=== PATIENT | male | born 1990 | race Hispanic/Latino ===

== ENCOUNTER 2017-06-12 22:56 | Observation (INO) | payer OTHER ==
[2017-06-12 23:10] VITALS: BMI 21.7
--- NOTE | 2017-06-12 23:10 | ED PDOC ---
Arrival/HPI - General Historian: Patient, EMS - History of Present Illness Symptom Onset: Gradual Symptom Course: Unchanged Activities at Onset: Light Context: Street - General Time Seen by Provider: 06/12/17 23:02 - History of Present Illness Narrative History of Present Illness (Text): 06/12/17 23:09 Jerome Jasso is a 26 year old male who presents to the Emergency department brought in by EMS for public intoxication tonight. Patient admits to drinking and denies any substance abuse. Patient denies any suicidal ideation, homicidal ideation, nausea, vomiting, headache, dizziness, or any other complaints. Patient states he wants to leave and attempting to leave Emergency room. (Harvey Gold) Past Medical History - Provider Review Nursing Documentation Reviewed: Yes - Infectious Disease Hx of Infectious Diseases: None - Tetanus Immunization Tetanus Immunization: Unknown - Past Medical History Past Medical History: No Previous - Psychiatric Hx Depression: No Hx Emotional Abuse: No Hx Physical Abuse: No Hx Substance Use: No - Past Surgical History Past Surgical History: No Previous - Suicidal Assessment Feels Threatened In Home Enviroment: No Family/Social History - Physician Review Nursing Documentation Reviewed: Yes Family/Social History: Unknown Family HX Smoking Status: Heavy Smoker > 10 Cigarettes Daily Hx Alcohol Use: Yes Hx Substance Use: No Hx Substance Use Treatment: No Allergies/Home Meds Allergies/Adverse Reactions: Allergies apple Allergy (Verified 04/07/16 13:40) ITCHING coronado Allergy (Verified 04/07/16 13:40) ANGIOEDEMA Penicillins Allergy (Verified 04/07/16 13:40) URTICARIA strawberry Allergy (Verified 04/07/16 13:40) ANGIOEDEMA Home Medications: Home Meds Medication Instructions Recorded Confirmed No Known Home Med 06/13/17 06/13/17 Review of Systems - Physician Review All systems were reviewed & negative as marked: Yes - Review of Systems Constitutional: Normal. absent: Fevers Eyes: Normal ENT: Normal Respiratory: Normal. absent: SOB, Cough Cardiovascular: Normal. absent: Chest Pain Gastrointestinal: Normal. absent: Abdominal Pain, Diarrhea, Nausea, Vomiting Genitourinary Male: Normal. absent: Dysuria, Frequency, Hematuria, Urinary Output Changes Musculoskeletal: Normal. absent: Back Pain, Neck Pain Skin: Normal. absent: Rash Neurological: Normal. absent: Headache, Dizziness Endocrine: Normal Hemo/Lymphatic: Normal Psychiatric: Other (+alcohol intoxication) Physical Exam Vital Signs Reviewed: Yes Temperature: Afebrile Blood Pressure: Normal Pulse: Regular Respiratory Rate: Normal Appearance: Positive for: Well-Appearing, Comfortable Pain Distress: None Mental Status: Positive for: Alert and Oriented X 3 - Systems Exam Head: Present: Atraumatic, Normocephalic Pupils: Present: PERRL Extroacular Muscles: Present: EOMI Conjunctiva: Present: Normal Mouth: Present: Moist Mucous Membranes Neck: Present: Normal Range of Motion Respiratory/Chest: Present: Clear to Auscultation, Good Air Exchange. No: Respiratory Distress, Accessory Muscle Use Cardiovascular: Present: Regular Rate and Rhythm, Normal S1, S2. No: Murmurs Abdomen: Present: Normal Bowel Sounds. No: Tenderness, Distention, Peritoneal Signs Back: Present: Normal Inspection Upper Extremity: Present: Normal Inspection. No: Cyanosis, Edema Lower Extremity: Present: Normal Inspection. No: Edema Neurological: Present: GCS=15, CN II-XII Intact, Speech Normal Skin: Present: Warm, Dry, Normal Color. No: Rashes Psychiatric: Present: Alert, Oriented x 3, Normal Insight, Normal Concentration Vital Signs Temp Pulse Resp BP Pulse Ox 06/13/17 08:46 98 F 74 20 122/65 99 06/13/17 07:24 66 18 95/47 L 99 06/13/17 06:00 97.6 F 82 16 122/47 L 97 06/13/17 01:02 78 16 100/60 96 06/12/17 23:20 97.6 F 86 16 114/76 99 Medical Decision Making ED Course and Treatment: 06/12/17 23:09 Impression: 26 year old male brought in by EMS for alcohol intoxication. Differential Diagnosis included but are not limited to: alcohol intoxication Plan: -- Alcohol level -- Reassess and disposition Prior Visits: Notes and results from previous visits were reviewed. On 04/07/2016, pt was seen in the Emergency department for productive cough. Pt was d/c home. (Harvey Gold) - Medication Orders Current Medication Orders: Discontinued Medications Haloperidol Lactate (Haldol) 5 mg IM STAT STA PRN Reason: Protocol Stop: 06/12/17 23:46 Last Admin: 06/12/17 23:56 Dose: 5 mg Lorazepam (Ativan) 2 mg IM ONCE ONE Stop: 06/12/17 23:46 Last Admin: 06/12/17 23:57 Dose: 2 mg ED OBSERVATION Date of observation admission: 06/12/17 Time of observation admission: 23:10 - Observation admission statement Patient is being placed in observation because:: alcohol intoxication (Harvey Gold) - Goals of Observation Goals of observation are:: sobriety, observe for signs of withdrawal (Harvey Gold) - Progress Note Progress Note: 06/12/17 23:10 Pt attempting to walk out of Emergency room. Pt restrained for his safety and the safety of staff. 06/13/17 01:00 Pt sleeping, stable vital signs. 06/13/17 03:00 Pt sleeping, in no acute distress. 06/13/17 05:00 Pt sleeping, in no acute distress. 06/13/17 06:55 Pt. remains drowsy combination of alcohol and sedation.Endorsed to , pending sobriety/reassessment/final disposition (Harvey Gold) - Scribe Statement The provider has reviewed the documentation as recorded by the Scribe - Scribe Statement Malou Mattson Provider Scribe Attestation: All medical record entries made by the Scribe were at my direction and personally dictated by me. I have reviewed the chart and agree that the record accurately reflects my personal performance of the history, physical exam, medical decision making, and the department course for this patient. I have also personally directed, reviewed, and agree with the discharge instructions and disposition. (Harvey Gold) Disposition/Present on Arrival - Present on Arrival Any Indicators Present on Arrival: No History of DVT/PE: No History of Uncontrolled Diabetes: No Urinary Catheter: No History Surgical Site Infection Following: None - Disposition Have Diagnosis and Disposition been Completed?: Yes Disposition Time: 07:00 - Disposition Diagnosis: Alcohol intoxication Disposition: HOME/ ROUTINE Condition: IMPROVED
--- NOTE | 2017-06-13 07:13 | ED PDOC ---
Physical Exam Vital Signs Temp Pulse Resp BP Pulse Ox 06/13/17 07:24 66 18 95/47 L 99 06/13/17 06:00 97.6 F 82 16 122/47 L 97 06/13/17 01:02 78 16 100/60 96 06/12/17 23:20 97.6 F 86 16 114/76 99 Medical Decision Making ED Course and Treatment: 06/13/17 07:12 Case endorsed to me by Dr. Gold. Pending patient's sobriety. 06/13/17 08:45 On re-evaluation patient is awake and oriented x3. Patient has no hand tremors and no ataxia. Patient denies Suicidal Ideation and Homicidal Ideation. Patient states he had a little too much to drink and will consider a detox program. - Medication Orders Current Medication Orders: Discontinued Medications Haloperidol Lactate (Haldol) 5 mg IM STAT STA PRN Reason: Protocol Stop: 06/12/17 23:46 Last Admin: 06/12/17 23:56 Dose: 5 mg Lorazepam (Ativan) 2 mg IM ONCE ONE Stop: 06/12/17 23:46 Last Admin: 06/12/17 23:57 Dose: 2 mg Disposition/Present on Arrival - Present on Arrival Any Indicators Present on Arrival: No History of DVT/PE: No History of Uncontrolled Diabetes: No Urinary Catheter: No History of Decub. Ulcer: No History Surgical Site Infection Following: None - Disposition Have Diagnosis and Disposition been Completed?: Yes Diagnosis: Alcohol intoxication Disposition: HOME/ ROUTINE Disposition Time: 08:24 Patient Plan: Discharge Condition: IMPROVED
[2017-06-13 07:25] VITALS: O2SAT 99
[2017-06-13 08:46] VITALS: BP 122/65; PULSE 74; RESP 20; TEMP 98
== END 2017-06-13 08:24 | disposition home or self-care (01) ==
LOC: ED 22:56 → EROBSV 23:10
PROVIDERS: ADMIT Emergency Medicine; ATTEND Emergency Medicine
DX: F10.129 Alcohol abuse with intoxication, unspecified (principal); Y90.8 Blood alcohol level of 240 mg/100 ml or more
CPT/HCPCS: 80320; 96372; 99285; G0378; J1630; J2060

== ENCOUNTER 2018-09-29 20:41 | Emergency (ER) | payer OTHER ==
[2018-09-29 21:26] VITALS: BMI 21.2
--- NOTE | 2018-09-29 21:40 | ED PDOC ---
Arrival/HPI - General Historian: Patient - History of Present Illness Narrative History of Present Illness (Text): 09/29/18 21:37 28 y/o M with no significant PMHx presents to ED with complaints of constant, 8/10 L ankle and L knee pain since 4 days ago. Pt reports he was playing basketball over the weekend when he landed on his L ankle and inverted it and felt his knee buckle as he fell towards the R side. He has tried ice and epsom salt soak without relief. He reports he did not feel it buckle. He has been able to bear weight on the leg, but has missed work for the last 3 days. He denies fevers, chills, headache, dizziness, chest pain, palpitations, shortness of breath, nausea, vomiting, diarrhea. Time/Duration: Prior to Arrival Symptom Onset: Gradual Symptom Course: Unchanged Quality: Throbbing Severity Level: 8 Context: Other (playing basketball) <Tory Scruggs - Last Filed: 09/29/18 23:15> <Harvey Gold - Last Filed: 09/30/18 01:05> - General Chief Complaint: Lower Extremity Problem/Injury Past Medical History - Provider Review Nursing Documentation Reviewed: Yes - Infectious Disease Hx of Infectious Diseases: None - Tetanus Immunization Tetanus Immunization: Unknown - Past Medical History Past Medical History: No Previous - Psychiatric Hx Depression: No Hx Emotional Abuse: No Hx Physical Abuse: No Hx Substance Use: No - Past Surgical History Past Surgical History: No Previous - Anesthesia Hx Anesthesia: No - Suicidal Assessment Feels Threatened In Home Enviroment: No <Tory Scruggs - Last Filed: 09/29/18 23:15> Family/Social History - Physician Review Nursing Documentation Reviewed: Yes Family/Social History: Unknown Family HX Smoking Status: Heavy Smoker > 10 Cigarettes Daily Hx Alcohol Use: Yes Hx Substance Use: No Hx Substance Use Treatment: No <Tory Scruggs - Last Filed: 09/29/18 23:15> Allergies/Home Meds <Tory Scruggs - Last Filed: 09/29/18 23:15> <Harvey Gold - Last Filed: 09/30/18 01:05> Allergies/Adverse Reactions: Allergies apple Allergy (Verified 09/29/18 21:26) ITCHING coronado Allergy (Verified 09/29/18 21:26) ANGIOEDEMA Penicillins Allergy (Verified 09/29/18 21:26) URTICARIA strawberry Allergy (Verified 09/29/18 21:26) ANGIOEDEMA Home Medications: Home Meds Medication Instructions Recorded Confirmed No Known Home Med 06/13/17 09/29/18 Review of Systems - Review of Systems Constitutional: Normal Eyes: Normal ENT: Normal Respiratory: Normal Cardiovascular: Normal Gastrointestinal: Normal Genitourinary Male: Normal Musculoskeletal: Joint Swelling (L ankle), Other (L medial knee pain) Skin: Normal Neurological: Normal Endocrine: Normal Hemo/Lymphatic: Normal Psychiatric: Normal <Tory Scruggs - Last Filed: 09/29/18 23:15> Physical Exam Vital Signs Reviewed: Yes Temperature: Afebrile Blood Pressure: Normal Pulse: Regular Respiratory Rate: Normal Appearance: Positive for: Well-Appearing, Non-Toxic, Comfortable Pain Distress: None Mental Status: Positive for: Alert and Oriented X 3 - Systems Exam Head: Present: Atraumatic, Normocephalic Pupils: Present: PERRL Extroacular Muscles: Present: EOMI Conjunctiva: Present: Normal Mouth: Present: Moist Mucous Membranes Neck: Present: Normal Range of Motion Respiratory/Chest: Present: Clear to Auscultation, Good Air Exchange. No: Respiratory Distress, Accessory Muscle Use Cardiovascular: Present: Regular Rate and Rhythm, Normal S1, S2. No: Murmurs Abdomen: No: Tenderness, Distention, Peritoneal Signs Back: Present: Normal Inspection Upper Extremity: Present: Normal Inspection. No: Cyanosis, Edema Lower Extremity: Present: Edema (L ankle edema with lateral ecchymosis. ), Neurovascularly Intact, Other (L medial knee tenderness to palpation. (-) marilyn sign). No: CALF TENDERNESS Neurological: Present: GCS=15, CN II-XII Intact, Speech Normal Skin: Present: Warm, Dry, Normal Color. No: Rashes Psychiatric: Present: Alert, Oriented x 3, Normal Insight, Normal Concentration <Tory Scruggs - Last Filed: 09/29/18 23:15> Medical Decision Making ED Course and Treatment: 09/29/18 21:43 Impression: 28 y/o M with no sig PMHx presents to ED with L ankle/L knee sprain after playing basketball 3 days ago. Differential diagnosis includes but not limited to: L lateral ankle sprain L MCL sprain L metatarsal fracture Plan: L knee & ankle xray Ibuprofen for pain Reassess & dispo Progress Notes: 09/29/18 23:05 Pt revaluated. Pt requesting to sign out AMA and is refusing foot xray. Pt explained all risks, benefits and alternatives to remaining in ER/hospitalization. Pt still requests signing out. AMA paperwork signed by patient, physician and nurse witness. Pt given instructions to return to nearest ER if symptoms return. <Tory Scruggs - Last Filed: 09/29/18 23:15> ED Course and Treatment: Impression: Pt seen and evaluated with medical unit secretary. Aware and agree with HPI, clinical findings, plan, and management. Pt, with no significant past medical history, presented for left ankle and left knee pain after injuring the affected area while playing basketball a few days ago. Plan: -- Motrin -- XR Left Knee -- XR Left Ankle -- Reassess and disposition 09/29/15 23:05 The patient declines to have further medical evaluation and treatment and wishes to leave the Emergency Department. This action is against my medical advice to the patient, and with informed refusal. The patient was told that evaluation and treatment are necessary and a full explanation of the rationale was given. The risks of leaving were explained to the patient and include, but are not limited to, worsening of known or currently unknown conditions, permanent disability and from undiagnosed or untreated conditions The patient has the capacity to make this informed decision and understands the clinical situation and my explanation of the risks of leaving. The patient voluntarily accepts these risks, and a signed AMA form documenting our conversation was obtained. The patient was given the opportunity to ask questions and reconsider. The patient was encouraged to return to the Emergency Department at any time for further care. - RAD Interpretation Radiology Orders: 09/29/18 21:45 ANKLE LEFT 3 VIEWS ROUTINE [RAD] Stat KNEE LEFT 2 VIEWS (AP & LAT) [RAD] Stat - Medication Orders Current Medication Orders: Discontinued Medications Ibuprofen (Motrin Tab) 600 mg PO STAT STA Stop: 09/29/18 21:48 <Harvey Gold - Last Filed: 09/30/18 01:05> - PA / [employer] / Resident Statement SHANIA has reviewed & agrees with the documentation as recorded. MD/DO has examined the patient and agrees with the treatment plan. <Tory Scruggs - Last Filed: 09/29/18 23:15> Disposition/Present on Arrival - Present on Arrival Any Indicators Present on Arrival: No History of DVT/PE: No History of Uncontrolled Diabetes: No Urinary Catheter: No History of Decub. Ulcer: No History Surgical Site Infection Following: None - Disposition Have Diagnosis and Disposition been Completed?: Yes Disposition Time: 23:15 <Tory Scruggs - Last Filed: 09/29/18 23:15> <Harvey oGld - Last Filed: 09/30/18 01:05> - Disposition Diagnosis: Left ankle sprain, Left knee sprain Disposition: AGAINST MEDICAL ADVICE Patient Problems: Current Active Problems Problem Status Onset Left ankle sprain Acute Left knee sprain Acute Condition: GOOD Discharge Instructions (ExitCare): Ankle Sprain (DC), Knee Sprain (DC) Forms: [facility] (Bulgarian), WORK NOTE
[2018-09-30 04:23] VITALS: RESP 16; TEMP 98.1; O2SAT 99
[2018-09-30 04:25] VITALS: BP 125/72; PULSE 72
== END 2018-09-29 23:10 | disposition left against medical advice (07) ==
LOC: ED 20:41
DX: S93.402A Sprain of unspecified ligament of left ankle, initial encounter (principal); S83.92XA Sprain of unspecified site of left knee, initial encounter; W19.XXXA Unspecified fall, initial encounter; Y93.67 Activity, basketball; F17.210 Nicotine dependence, cigarettes, uncomplicated